=== PATIENT | female | born 1995 | race Hispanic/Latino ===

== ENCOUNTER 2016-11-26 14:13 | Emergency (ER) | payer OTHER ==
[2016-11-26 14:26] VITALS: BP 145/80
--- NOTE | 2016-11-26 14:35 | PROVIDER DOCUMENTATION ---
HPI-General Adult - General Chief Complaint: Work Related Injury Stated Complaint: WORK RELATED INJURY Time Seen by Provider: 11/26/16 14:27 Source: patient Allergies/Adverse Reactions: Patient Allergies Allergy/AdvReac Type Severity Reaction Status Date / Time No Known Allergies Allergy Verified 04/05/16 13:55 Home Medications: Home Medication List Medication Instructions Recorded Confirmed Last Taken Type No Home Medications 11/26/16 11/26/16 Unknown History - History of Present Illness -Gen Adult Nature of Presenting Problems: Pt. is 21 yof that presents with c/o left wrist pain that began after she picked up a tray at work. Pt. reports she heard a pop and now she can't move her hand. Pt. denies any other injury. Location of Pain/Injury: reports: upper extremity (Left wrist). denies: head, face, mouth, neck, chest, hand(s), abdomen, back, pelvis, genitalia, lower extremity, feet, upper body, lower body, generalized Pain Radiation: reports: no radiation Quality of Pain: reports: aching. denies: burning, cramping, dull, fullness, indigestion, pressure, sharp, stabbing, tearing, throbbing, tightness Severity: reports: moderate. denies: mild, severe Onset/Duration: reports: abrupt, just prior to arrival Timing: reports: still present. denies: improving, gone now, resolved prior to arrival, intermittent, constant, changing over time, getting worse Context/Activities at Onset: reports: light activity, recent physical stress. denies: recent emotional stress, recent trauma history, possible bad food, cold exposure, out of country travel Modifying Factors: improves with: immobilization. worse with: movement Associated Symptoms: reports: joint pain (Left wrist). denies: anxiety, arm pain, back/neck pain, chest pain, constipation, cough, diarrhea, EENT symptoms, fatigue, fever/chills, genitourinary problems, headaches, heartburn, loss of appetite, malaise, muscle aches, sinus congestion/drainage, nausea, rash, seizure, shortness of breath, sensory/motor loss, pain with inspiration, swelling/mass in abdomen, syncope, vomiting, weakness, trouble walking Similar Symptoms Previously?: No Recently seen or treated by another doctor?: No Review of Systems - Adult - REVIEW OF SYSTEMS - ADULT Constitutional: reports: see HPI. denies: chills, fever, fatique Eyes: reports: see HPI. denies: discharge, blurred vision, double vision Ears, Nose, Mouth & Throat: reports: see HPI. denies: ear pain, hearing loss, sinus problem, nose pain, loose teeth, mouth/dental pain, hoarseness, throat swelling Cardiovascular: reports: see HPI. denies: chest pain, orthopnea, palpitations, syncope Respiratory: reports: see HPI. denies: cough, dyspnea on exertion, pleurisy, shortness of breath, wheezing Gastrointestinal: reports: see HPI. denies: abdominal pain, hematemesis, diarrhea, nausea, vomiting Genitourinary: reports: see HPI. denies: dysuria, frequency, hematuria, hesitency, incontinence, urgency Musculoskeletal: reports: see HPI, joint pain (left wrist). denies: bone pain, back pain, joint swelling, neck pain Integumentary: reports: see HPI. denies: hives, hair loss, itching, rash, skin thickening Neurological: reports: see HPI. denies: ataxia, headache/migraines, numbness, seizure, tremors Psychiatric: reports: see HPI. denies: anxiety, depression, emotional problems , insomnia, panic attacks, suicidal thoughts Past History - Adult - PAST MEDICAL HISTORY-ADULT Review of Records: reports: Old Records Reviewed, Nursing Assessment Review, Medications Reviewed, Social history reviewed & non-contributory. Major Childhood Illnesses: reports: denies history Cardiovascular: reports: denies history Respiratory: reports: denies history Gastrointestinal: reports: denies history Obstetrical/Gynecological: reports: denies history Genitourinary: reports: denies history Musculoskeletal: reports: denies history Neurological: reports: denies history Endocrine/Immune: reports: denies history Other Conditions: reports: denies history - PRIOR SURGERIES/PROCEDURES Surgical/Procedure History: reports: none - IMMUNIZATION STATUS Childhood Immunizations: See Nurse Assessment Flu Vaccine: See Nurse Assessment - FAMILY HISTORY Family History: reviewed, not pertinent - SOCIAL HISTORY Smoking: non-smoker Physical Exam-General - PHYSICAL EXAM-ADULT Initial Vital Signs Reviewed: Yes - CONSTITUTIONAL General Appearance: alert, mild distress, thin. negative: obese, anxious, lethargic, slow to respond, obtunded, combative - EYES Eyes: PERRL/EOMI, pink conjunctivae. negative: conjuctival exudate, scleral icterus, subconjunctival hemorrhage - HEAD, EARS, NOSE, MOUTH & THROAT HENMT: normocephalic/atraumatic, moist mucous membranes. negative: angioedema, frontal tenderness, maxillary tenderness - NECK Neck: non-tender, full range of motion, supple, normal inspection. negative: lymphadenopathy, trachial deviation, thyromegaly - RESPIRATORY Respiratory: lungs clear, normal breath sounds. negative: crackles, rales, rhonchi, stridor, wheezing - CARDIOVASCULAR Cardiovascular: normal peripheral pulses, regular rate, rhythm, no edema, no JVD , no murmur. negative: extra beats, friction rub, irregularly irregular - CHEST (BREASTS) Chest/Breast: deferred - GASTROINTESTINAL (ABDOMEN) Abdominal Exam: normal bowel sounds, non tender, soft. negative: distended, guarding, rigid, rebound, tenderness, hernia, mass - GENITOURINARY Female Genitalia/Pelvic Exam: deferred Rectal Exam: deferred Hemoccult Exam: deferred - LYMPHATIC Lymphatic: no adenopathy. negative: axilla node tender, cervical node tenderness - MUSCULOSKELETAL Back Exam: normal inspection, no CVA tenderness, no vertebral tenderness. negative: ecchymosis, swelling, vertebral tenderness Extremity: normal gait, normal inspection, tenderness (Left wrist). negative: deformity, erythema, inflammation, swelling Peripheral Pulses: radial (R): 2+, radial (L): 2+ - SKIN Integumentary: normal color, normal turgor, warm/dry. negative: cyanosis, diaphoresis, ecchymosis, erythema, jaundice, mottled, pallor, petechiae, purpura , rash, swelling, tenderness - NEUROLOGIC Neurologic: grossly normal, no motor/sensory deficits. negative: aphasia, facial droop, focal weakness, motor weakness, sensory deficit - PSYCHIATRIC Psych/Mental Status: normal mood/affect, normal thought content, normal thought process, oriented x 3. negative: anxious, paranoid, tearful Progress - PLAN OF CARE/RESULTS Progress/Plan/Lab Results: Discussed results and plan of care with patient. Patient agrees with plan and verbalizes understanding. Vital Signs Temp Pulse Resp BP Pulse Ox 11/26/16 14:23 98 F 90 18 145/80 100 No Known Allergies Allergy (Verified 04/05/16 13:55) No Home Medications 11/26/16 Orders Category Date Time Status WRIST COMPLETE LEFT [RAD] Stat Exams 11/26/16 14:27 Taken - XRAY 1 XRAY: Left XRAY Study: Wrist XRAY Interpretation: No Fx ([place]) Departure - Departure Time of Disposition Order: 14:54 DIAGNOSIS: Wrist strain Qualifiers: Encounter type: initial encounter Laterality: left Qualified Code(s): S66.912A - Strain of unspecified muscle, fascia and tendon at wrist and hand level, left hand, initial encounter Disposition: HOME 01 Certified Medical Emergency: Emergent Condition: Stable Additional Instructions: Follow up with primary care physician Wear rossana wrap for comfort Elevate and ice when at home Take tylenol or ibuprofen as directed by packaging for pain Return to ED for any concerns or worsening of symptoms ED Follow Up Instructions: You have been treated by a care provider in the Emergency Department. These instructions are being provided to you so you can have an understanding of how to care for yourself upon discharge. Upon discharge from the Emergency Department, you are responsible for making arrangements for follow-up care by a physician of your choice. Take all prescribed medications as directed. Return to the Emergency Department immediately for any new or worsening symptoms. You may call the Physician Referral phone number at [phone] to obtain a list of Physicians who are taking new patients. Forms: Work Excuse Attestation - Physician/ JOSE J Attestation Patient care was provided by Advanced Practice Provider:: Yes Advanced Practice Provider:: eBa Adan Advanced Practice Provider documentation review:: The Mid-level provider documentation, treatment plan and medical decision making was reviewed by the physician who agrees with all treatment and medical decision making by the MLP.
[2016-11-26] MEDS ORDERED: MOTRIN PO ONE (14:54)
[2016-11-26] MEDS ORDERED: PRILOSEC PO ONE (14:54)
--- NOTE | 2016-11-26 15:16 | Diag Imaging Result Document ---
PROCEDURE NAME: WRIST COMPLETE LEFT - 11/26/2016 LEFT WRIST THREE VIEWS: FINDINGS: No fracture. No dislocation. IMPRESSION: No acute bony injury.
== END 2016-11-26 15:15 | disposition home or self-care (01) ==
LOC: P.ED 14:13
DX: S66.912A Strain of unspecified muscle, fascia and tendon at wrist and hand level, left hand, initial encounter (principal); M25.532 Pain in left wrist; X58.XXXA Exposure to other specified factors, initial encounter
CPT/HCPCS: 99283

== ENCOUNTER 2019-02-28 17:16 | Inpatient (IN) ==
[2019-02-28] MEDS ORDERED: ZOFRAN IV ONE (17:58)
[2019-02-28] MEDS ORDERED: MORPHINE IV ONE (17:58)
[2019-02-28] MEDS ORDERED: NS 1,000 ML IV ONE ×2 (17:58→18:01)
--- NOTE | 2019-02-28 18:30 | Diag Imaging Result Doc PS360 ---
EXAM: CHEST-1 VIEW - 02/28/2019 HISTORY: chills, LUQ pain TECHNIQUE: Portable chest COMPARISON: None. FINDINGS: Heart size is normal. The lungs appear clear. There is no pleural effusion or pneumothorax identified. IMPRESSION: No evidence of acute disease. Electronically signed by Jese Rivero 02/28/2019 6:28 PM
[2019-02-28 18:34] LABS: URINE SOURCE CATH
[2019-02-28 18:39] LABS: BILIRUBIN URINE NEGATIVE (NEGATIVE); BLOOD URINE NEGATIVE (NEGATIVE); COLOR YELLOW; GLUCOSE URINE NEGATIVE (NEGATIVE); KETONE URINE NEGATIVE (NEGATIVE); LEUKOCYTES URINE SMALL (NEGATIVE); NITRITE URINE NEGATIVE (NEGATIVE); PH URINE 5.5; PROTEIN URINE TRACE mg/dL (NEGATIVE); SP GRAVITY URINE 1.024; TURBIDITY URINE HAZY (CLEAR); UROBILINOGEN URINE NORMAL (NORMAL)
[2019-02-28 18:40] LABS: UR EPITHELIAL CELLS <10 /HPF (<10); URINE BACTERIA 4+ /HPF; URINE RBC <10 /HPF (<10); URINE WBC <10 /HPF (<10)
[2019-02-28 18:41] LABS: BASO# 0.02 X1000 (0.0-0.2); BASO% 0.3 % (0.0-0.8); EOS# 0.04 X1000 (0.0-0.7); EOS% 0.7 % (0.0-10.0); HEMATOCRIT 24.8 % (37.0-47.0); HEMOGLOBIN 6.8 g/dL (12.0-16.0); LYMPH# 1.49 X1000 (1.2-3.4); LYMPH% 24.3 % (20.5-51.1); MCH 19.9 PG (27-31); MCHC 27.4 g/dL (33-37); MCV 72.7 FL (81-99); MONO# 0.69 X1000 (0.11-0.59); MONO% 11.3 % (1.7-9.3); MPV 11.4 FL (7.4-10.4); NEUT# 3.89 X1000 (1.4-6.5); NEUT% 63.4 % (42.2-75.2); PLT 219 X1000 (130-400); RBC 3.41 XMIL (4.2-5.4); RDW 18.1 % (11.5-14.5); WBC 6.13 X1000 (4.8-10.8)
--- NOTE | 2019-02-28 18:43 | PROVIDER DOCUMENTATION ---
This chart was entered by Elizabeth Ta Scribe, acting as scribe for Keyur Worthington MD. HPI-Abdominal Pain/GI Problem - General Source: patient - History of Present Illness-ABD Nature of Presenting Problems: 23 y/o female presents to ED with sharp generalized abdominal pain, SOB, headache, and sternal chest pain onset 1 hour prior to arrival. Pt reports she had 1 episode of epistaxis and N/V. Pt states her symptoms began after she got off of work this evening. Pt reports LMP 2 weeks ago. Pt is alert and oriented. Abdominal Pain Onset Location: reports: generalized abdomen Pain Radiation: reports: no radiation Quality of Pain: reports: sharp Severity in ED: reports: moderate Onset/Duration: reports: 1-3 hours ago Timing: reports: still present Activities at Onset: reports: none Modifying Factors: worse with: palpation Associated Symptoms: reports: chest pain, headaches, nausea, shortness of breath , vomiting, other (epistaxis) Last BM: unsure Dark Stools Present?: reports: none noticed Rectal Bleeding: reports: none Rectal Pain: reports: none Similar Symptoms Previously?: No Recently seen or treated by another doctor?: No <Keyur Worthington - Last Filed: 02/28/19 18:43> <Radha Hutton - Last Filed: 02/28/19 21:23> - General Chief Complaint: Abdominal Pain Stated Complaint: ABD PAIN Time Seen by Provider: 02/28/19 17:45 Allergies/Adverse Reactions: Patient Allergies Allergy/AdvReac Type Severity Reaction Status Date / Time No Known Allergies Allergy Verified 04/14/18 18:13 Home Medications: Home Medication List Medication Instructions Recorded Confirmed Last Taken Type Triamcinolone [Kenalog in [employer]] 1 applicatn TOP TID 10 Days #1 tube 11/05/18 Unknown Rx Review of Systems - Adult - REVIEW OF SYSTEMS - ADULT Constitutional: denies: chills, fever Eyes: reports: no symptoms reported Ears, Nose, Mouth & Throat: reports: epistaxis. denies: ear discharge Cardiovascular: reports: chest pain. denies: palpitations Respiratory: reports: shortness of breath. denies: cough Gastrointestinal: reports: abdominal pain, nausea, vomiting. denies: diarrhea Genitourinary: reports: no symptoms reported Musculoskeletal: denies: back pain, joint pain Integumentary: reports: no symptoms reported Neurological: reports: headache/migraines. denies: dizziness/vertigo, seizure Psychiatric: reports: no symptoms reported Endocrine: reports: no symptoms reported Hematologic/Lymphatic: reports: no symptoms reported Allergic/Immunologic: reports: no symptoms reported All Other Systems: Reviewed and Negative <Keyur Worthington - Last Filed: 02/28/19 18:43> Past History - Adult - PAST MEDICAL HISTORY-ADULT Review of Records: reports: Old Records Reviewed, Nursing Assessment Review, Medications Reviewed Major Childhood Illnesses: reports: denies history Cardiovascular: reports: denies history Respiratory: reports: denies history Gastrointestinal: reports: denies history Obstetrical/Gynecological: reports: denies history Genitourinary: reports: denies history Musculoskeletal: reports: denies history Neurological: reports: denies history Endocrine/Immune: reports: hypoglycemia Other Conditions: reports: denies history - PRIOR SURGERIES/PROCEDURES Surgical/Procedure History: reports: none - IMMUNIZATION STATUS Childhood Immunizations: See Nurse Assessment Flu Vaccine: See Nurse Assessment - FAMILY HISTORY Family History: reviewed, not pertinent - SOCIAL HISTORY Smoking: non-smoker Substance Use: none/never Alcohol Use Frequency: never Living Situation: family <Keyur Worthington - Last Filed: 02/28/19 18:43> Physical Exam-General - PHYSICAL EXAM-ADULT Initial Vital Signs Reviewed: Yes - CONSTITUTIONAL General Appearance: appears well, alert, moderate distress - EYES Eyes: PERRL/EOMI, pink conjunctivae - HEAD, EARS, NOSE, MOUTH & THROAT HENMT: normocephalic/atraumatic, moist mucous membranes, normal ENT inspection - RESPIRATORY Respiratory: chest non-tender, lungs clear, normal breath sounds - CARDIOVASCULAR Cardiovascular: normal peripheral pulses, regular rate, rhythm - GASTROINTESTINAL (ABDOMEN) Abdominal Exam: normal bowel sounds, soft, tenderness (epigastric, LUQ, suprapubic) - MUSCULOSKELETAL Back Exam: normal inspection, no vertebral tenderness, CVA tenderness (R) Extremity: normal range of motion, non-tender, normal gait - SKIN Integumentary: normal color, warm/dry - NEUROLOGIC Neurologic: grossly normal - PSYCHIATRIC Psych/Mental Status: normal mood/affect, normal thought content, normal thought process, oriented x 3 <Keyur Worthington - Last Filed: 02/28/19 18:43> Progress - PLAN OF CARE/RESULTS Progress/Plan/Lab Results: Vital Signs - 8 hr 02/28/19 17:29 Temperature 98.9 F Pulse Rate 95 H Respiratory Rate 20 Blood Pressure 134/83 O2 Sat by Pulse Oximetry 100 Bedside Urine ED: Urine Bedside Start: 02/28/19 17:43 Freq: ORDERED Status: Active Protocol: Activity Type Activity Date Activity User E-Sign Co-Sign Detail Recorded Client Recorded Date Recorded By Document 02/28/19 17:46 [id number] 02/28/19 17:48 [id number] 02/28/19 17:46 Point of Care [Bedside Point of Care] -Lot # [id number] - Results Negative -Control Line Visible? Yes Orders Category Date Time Status ED: Urine Bedside ORDERED Care 02/28/19 17:43 Active Result Diagrams: 02/28/19 17:38 - XRAY 1 XRAY Study: Chest Impression: See EMR Report - CT/MRI 1 CT Study: Abdomen, Pelvis Impression: See EMR Report - CHANGE OF SHIFT REPORT (ED Provider) 1 Report Given and Care Transferred to:: Anni Time of Transfer: 19:00 <Keyur Worthington - Last Filed: 02/28/19 18:43> - PLAN OF CARE/RESULTS Progress/Plan/Lab Results: Vital Signs - 8 hr 02/28/19 17:29 02/28/19 17:31 02/28/19 17:46 Temperature 98.9 F Pulse Rate 95 H Respiratory Rate 20 Blood Pressure 134/83 O2 Sat by Pulse Oximetry 100 100 97 02/28/19 17:50 02/28/19 18:00 02/28/19 18:10 Temperature Pulse Rate Respiratory Rate Blood Pressure O2 Sat by Pulse Oximetry 99 100 98 02/28/19 18:20 02/28/19 18:30 02/28/19 18:38 Temperature Pulse Rate Respiratory Rate Blood Pressure 87/53 O2 Sat by Pulse Oximetry 98 98 100 02/28/19 18:40 02/28/19 18:50 02/28/19 19:00 Temperature Pulse Rate Respiratory Rate Blood Pressure O2 Sat by Pulse Oximetry 100 97 98 02/28/19 19:02 02/28/19 19:10 02/28/19 19:36 Temperature Pulse Rate Respiratory Rate Blood Pressure 112/57 O2 Sat by Pulse Oximetry 98 99 100 02/28/19 19:40 02/28/19 20:56 02/28/19 21:03 Temperature 98.3 F 98.3 F Pulse Rate 93 H 82 Respiratory Rate 18 18 Blood Pressure 118/71 114/57 O2 Sat by Pulse Oximetry 100 100 97 02/28/19 21:07 02/28/19 21:13 Temperature 98.4 F 97.6 F Pulse Rate 78 86 Respiratory Rate 18 18 Blood Pressure 112/59 105/60 O2 Sat by Pulse Oximetry 99 100 Bedside Urine ED: Urine Bedside Start: 02/28/19 17:43 Freq: ORDERED Status: Active Protocol: Activity Type Activity Date Activity User E-Sign Co-Sign Detail Recorded Client Recorded Date Recorded By Document 02/28/19 17:46 [id number] 02/28/19 17:48 [id number] 02/28/19 17:46 Point of Care [Bedside Point of Care] -Lot # [id number] - Results Negative -Control Line Visible? Yes Laboratory Results - last 24 hr 02/28/19 02/28/19 02/28/19 17:38 17:38 17:43 WBC 6.13 RBC 3.41 L Hgb 6.8 L Hct 24.8 L MCV 72.7 L MCH 19.9 L MCHC 27.4 L RDW Std Deviation 18.1 H Plt Count 219 MPV 11.4 H Immature Gran % (Auto) 0.0 Neut % (Auto) 63.4 Lymph % (Auto) 24.3 Titus % (Auto) 11.3 H Eos % (Auto) 0.7 Baso % (Auto) 0.3 Immature Gran # (Auto) 0.00 Neut # (Auto) 3.89 Lymph # (Auto) 1.49 Titus # (Auto) 0.69 H Eos # (Auto) 0.04 Baso # (Auto) 0.02 Sodium 139 Potassium 3.4 L Chloride 104 Carbon Dioxide 21 L Anion Gap 14 BUN 14 Creatinine 0.7 Estimated GFR/1.73 m2 > 60 BUN/Creatinine Ratio 20 Glucose 120 H Calculated Osmolality 279 Calcium 8.8 Iron TIBC % Saturation Unsat Iron Binding Ferritin Total Bilirubin 0.69 AST 17 ALT 10 Alkaline Phosphatase 73 Total Protein 7.6 Albumin 4.2 Globulin 3.4 Albumin/Globulin Ratio 1.2 Amylase 23 Lipase 17 Vitamin B12 Folate Urine Source CATH Urine Color YELLOW Urine Turbidity HAZY Urine pH 5.5 Ur Specific [place] 1.024 Urine Protein TRACE A Ur Glucose (Stick) NEGATIVE Ur Ketones (Stick) NEGATIVE Urine Blood NEGATIVE Urine Nitrite NEGATIVE Urine Bilirubin NEGATIVE Urobilinogen Dipstick NORMAL Urine Leukocytes SMALL A Urine WBC (Auto) <10 Urine RBC (Auto) <10 U Epithel Cells (Auto) <10 Urine Bacteria (Auto) 4+ Blood Type Weak D (Du) Antibody Screen Crossmatch 02/28/19 02/28/19 02/28/19 19:48 19:48 19:48 WBC RBC Hgb Hct MCV MCH MCHC RDW Std Deviation Plt Count MPV Immature Gran % (Auto) Neut % (Auto) Lymph % (Auto) Titus % (Auto) Eos % (Auto) Baso % (Auto) Immature Gran # (Auto) Neut # (Auto) Lymph # (Auto) Titus # (Auto) Eos # (Auto) Baso # (Auto) Sodium Potassium Chloride Carbon Dioxide Anion Gap BUN Creatinine Estimated GFR/1.73 m2 BUN/Creatinine Ratio Glucose Calculated Osmolality Calcium Iron TIBC % Saturation Unsat Iron Binding Ferritin 5 L Total Bilirubin AST ALT Alkaline Phosphatase Total Protein Albumin Globulin Albumin/Globulin Ratio Amylase Lipase Vitamin B12 Folate 15.4 Urine Source Urine Color Urine Turbidity Urine pH Ur Specific [place] Urine Protein Ur Glucose (Stick) Ur Ketones (Stick) Urine Blood Urine Nitrite Urine Bilirubin Urobilinogen Dipstick Urine Leukocytes Urine WBC (Auto) Urine RBC (Auto) U Epithel Cells (Auto) Urine Bacteria (Auto) Blood Type O NEGATIVE Weak D (Du) WEAK D NEGATIVE Antibody Screen NEGATIVE Crossmatch See Detail 02/28/19 02/28/19 19:48 19:48 WBC RBC Hgb Hct MCV MCH MCHC RDW Std Deviation Plt Count MPV Immature Gran % (Auto) Neut % (Auto) Lymph % (Auto) Titus % (Auto) Eos % (Auto) Baso % (Auto) Immature Gran # (Auto) Neut # (Auto) Lymph # (Auto) Titus # (Auto) Eos # (Auto) Baso # (Auto) Sodium Potassium Chloride Carbon Dioxide Anion Gap BUN Creatinine Estimated GFR/1.73 m2 BUN/Creatinine Ratio Glucose Calculated Osmolality Calcium Iron 15 L TIBC 395 % Saturation 4 Unsat Iron Binding 380 H Ferritin Total Bilirubin AST ALT Alkaline Phosphatase Total Protein Albumin Globulin Albumin/Globulin Ratio Amylase Lipase Vitamin B12 367 Folate Urine Source Urine Color Urine Turbidity Urine pH Ur Specific [place] Urine Protein Ur Glucose (Stick) Ur Ketones (Stick) Urine Blood Urine Nitrite Urine Bilirubin Urobilinogen Dipstick Urine Leukocytes Urine WBC (Auto) Urine RBC (Auto) U Epithel Cells (Auto) Urine Bacteria (Auto) Blood Type Weak D (Du) Antibody Screen Crossmatch Orders Category Date Time Status ED: Urine Bedside ORDERED Care 02/28/19 17:43 Active Transfuse .Give-Transfuse Care 02/28/19 19:19 Active CHEST-1 VIEW [RAD] Stat Exams 02/28/19 17:[address] ABD/PELVIS W/IV CONT ONLY [CT] Stat Exams 02/28/19 17:59 Completed AMYLASE [CHEM] Stat Lab 02/28/19 17:38 Completed CBC WITH DIFF [HEME] Stat Lab 02/28/19 17:38 Completed COMPREHENSIVE METABOLIC PANEL [CHEM] Stat Lab 02/28/19 17:38 Completed FERRITIN Stat Lab 02/28/19 19:48 Completed FOLATE Stat Lab 02/28/19 19:48 Completed LIPASE [CHEM] Stat Lab 02/28/19 17:38 Completed PRBC [LRPC (RED CELLS)] [BBK] Stat Lab 02/28/19 19:48 Results TRANSFERRIN [HH] Stat Lab 02/28/19 19:48 Received TYPE & SCREEN [BBK] Stat Lab 02/28/19 19:48 Results UIBC W TOTAL IRON [CHEM] Stat Lab 02/28/19 19:48 Completed URINALYSIS [URINALYSIS] Stat Lab 02/28/19 17:43 Completed VITAMIN B12 Stat Lab 02/28/19 19:48 Completed WEAK D (MANUAL) [BBK] Stat Lab 02/28/19 19:48 Results 0.9% Sodium Chloride Inj [Ns] 1,000 ml Med 02/28/19 18:01 Active IV 200 mls/hr 0.9% Sodium Chloride Inj [Ns] 1,000 ml Med 02/28/19 17:58 Discontinued IV 999 mls/hr Morphine Med 02/28/19 17:58 Discontinued 4 mg IV NOW ONE Ondansetron [Zofran] Med 02/28/19 17:58 Discontinued 8 mg IV NOW ONE Patient signed out to me pending CT Abd/pelvis. Hgb low to 6.[address] showing complex ovarian cyst which is likely the cause of her pain. SPoke to patient regarding findings and spoke to hospitalist regarding admission. Hospitalist accepted patient. Further orders to be placed by hospitalist teams. Result Diagrams: 02/28/19 17:38 02/28/19 17:38 - CONSULTS/PCP/HOSPITALIST Notification Time Discussed: 21:13 Reason/Comments: Hospitalist Consult Disposition: Admit <Radha Hutton - Last Filed: 02/28/19 21:23> Departure <Keyur Worthington - Last Filed: 02/28/19 18:43> - Departure Date of Disposition Decision: 02/28/19 Time of Disposition Decision: 21:20 Certified Medical Emergency: Emergent - Critical Care Note This patient required my direct & personal management of CC.: Yes Total Time (mins): 35 Critical Care Statement: This patient required my direct personal management to treat or rule out processes, the absence of which, could potentiallly result in sudden, clinically significant life or limb threatening deterioration. <Radha Hutton - Last Filed: 02/28/19 21:23> - Departure DIAGNOSIS: Acute on chronic anemia, Iron deficiency anemia Disposition: ADMITTED INPATIENT 09 Condition: Stable Referrals and Follow-Ups: None,PCP [Primary Care Provider] - Attestation - Physician/ JOSE J Attestation Patient care was provided by Advanced Practice Provider:: No The physician spent face to face time with patient:: Yes Advanced Practice Provider documentation review:: Supervising physician onsite and consulted in the evaluation and care of this patient. The physician did have a face to face encounter with the patient. <Keyur Worthington - Last Filed: 02/28/19 18:43> This chart was documented by the indicated scribe, (Elizabeth Ta Scribe) and accurately reflects the services I performed and decisions made by me, Keyur Worthington MD, as attested by the provider's signature.
[2019-02-28 18:56] LABS: AGAP 14; ALB/GLOB RATIO 1.2; ALBUMIN 4.2 g/dL (3.5-5.0); ALKALINE PHOSPHATASE 73 U/L (32-104); AMYLASE 23 U/L (20-200); BUN 14 mg/dL (8-22); CALCIUM 8.8 mg/dL (8.8-10.2); CHLORIDE 104 mmol/L (98-107); COSMO 279; CREATININE 0.7 mg/dL (0.5-0.9); ESTIMATED GFR > 60; GLUCOSE 120 mg/dL (70-104); GOT 17 U/L (10-30); GPT 10 U/L (10-36); LIPASE 17 U/L (13-60); POTASSIUM 3.4 mmol/L (3.5-5.1); SODIUM 139 mmol/L (136-145); TCO2 21 mmol/L (25-35); TOTAL BILIRUBIN 0.69 mg/dL (0.20-1.00); TOTAL PROTEIN 7.6 g/dL (6.3-8.3)
--- NOTE | 2019-02-28 19:42 | Diag Imaging Result Doc PS360 ---
EXAM: CT ABD/PELVIS W/IV CONT ONLY - 02/28/2019 HISTORY: abd pain TECHNIQUE: CT abdomen/pelvis with intravenous contrast. No oral contrast administered per request of the referring provider. COMPARISON: None. FINDINGS: The visualized lung bases appear clear. The liver and spleen are borderline prominent in size. There is no focal hepatic or splenic lesion identified. The adrenal glands and pancreas are unremarkable. There are no calcified gallstones or pericholecystic inflammation identified. The bilateral kidneys enhance homogeneously. There is no hydronephrosis. 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 There are no substantial enlarged lymph nodes identified. There is no evidence of bowel obstruction. The appendix is retrocecal in location and is unremarkable. There is a moderate amount retained fecal debris in the colon. There is no substantial bowel wall thickening identified. There is no free air or abscess identified. Images of pelvis show a 5.4 x 5 cm cystic lesion with internal septation or daughter cyst at the left posterior pelvis, which appears to arise from the left adnexa. There is a small amount of free fluid in the posterior pelvis. IMPRESSION: Borderline hepatosplenomegaly. No evidence of focal hepatic or splenic lesion. No bowel obstruction. Unremarkable appendix. Apparent constipation. 5.4 x 5 cm mildly complex cystic lesion arising at left adnexa. Small amount of free fluid in pelvis. This exam was performed using automated exposure control, adjustment of mA or kV according to patient size, and/or use of iterative reconstruction technique. Electronically signed by Jese Rivero 02/28/2019 7:40 PM
[2019-02-28 20:33] LABS: IRON SATURATION 4 %; TIBC 395 ug/dL; TOTAL IRON 15 ug/dL (49-151); UNBOUND IRON 380 ug/dL (112-346)
[2019-02-28] MEDS ORDERED: PHENERGAN IV PRN (22:40)
[2019-02-28] MEDS ORDERED: TYLENOL PO PRN (22:40)
[2019-02-28] MEDS ORDERED: MORPHINE IV PRN (22:40)
[2019-02-28] MEDS ORDERED: POTASSIUM CHLORIDE 20 MEQ/SWI 20 MEQ/100 ML IVPB IV ONE (22:43)
[2019-02-28] MEDS ORDERED: SODIUM CHLORIDE 0.9% INJ PRN (22:43)
[2019-02-28] MEDS: NS 1,000 ML IV SCH (23:21)
[2019-03-01] MEDS ORDERED: ZOFRAN IV PRN (00:30)
[2019-03-01] MEDS: NS 1,000 ML IV SCH (03:49)
[2019-03-01] MEDS: PRILOSEC PO SCH (06:23)
--- NOTE | 2019-03-01 07:10 | EKG Report ---
Test Performed on : 03/01/2019 06:48:38 AM Test Reason : Fatigue,Abd. Pain, SOB Blood Pressure : / mmHG Vent. Rate : 084 BPM Atrial Rate : 084 BPM P-R Int : 152 ms QRS Dur : 086 ms QT Int : 376 ms P-R-T Axes : 042 073 043 degrees QTc Int : 444 ms Normal sinus rhythm. Normal ECG No previous ECGs available Confirmed by Chino MANSFIELD, Loco Riley ([id number]) on 03/02/2019 7:28:20 PM
--- NOTE | 2019-03-01 07:23 | HISTORY AND PHYSICAL ---
CHIEF COMPLAINT: Abdominal pain. DATE AND TIME: 02/28/2019 at 2230. HISTORY OF PRESENT ILLNESS: Ms. Myke Patel is a 23-year-old female who has a past medical history most notable for iron-deficiency anemia and hypoglycemia. The patient states that for the past few weeks, she has been feeling very tired and fatigued. She even noted that she used to work two jobs, but had to let one of her jobs go because she was too tired to do both. She states that she does have a history of iron-deficiency anemia, and is supposed to be taking iron supplement, though has not been taking this recently. She reports that on February 28, approximately 1 hour prior to arrival to the ER, that she began having left upper quadrant abdominal pain, which she described as sharp in nature, feeling like somebody was stabbing her. She also reported symptoms of shortness of breath, chest pain, nausea, and vomiting. She also reported a headache as well. The patient states that right after these symptoms started, she did have an episode of epistaxis. Though upon further questioning, the patient states she has a history of having frequent nosebleeds, and this has been ongoing since she was a child, though she did deny any recent sinus problems. The patient denies any dizziness. She denied any cough, fever, body aches, or chills. She denies any hematochezia or melena. She denies any dysuria or urinary frequency. She states that her last menstrual period was 2 weeks ago. She did not report any heavy menstrual bleeding, though did state that she had been having lots of fatigue associated with her periods recently, so bad that she would just have to lay in bed. She denies any vaginal bleeding at this time as well. She reports that she has been taking some [id number] pain medication of ibuprofen, approximately 200 mg 2 times a day. Upon evaluation in the ER, the patient was noted to be anemic with a hemoglobin of 6.8 and hematocrit of 24.8. Platelet count was 219,000. For further evaluation of her shortness of breath, I did perform a chest x-ray, which showed noted evidence of acute disease. For the evaluation of her abdominal pain, I did perform a CT abdomen and pelvis with IV contrast only, which showed that the patient had borderline hepatosplenomegaly, though there was no evidence of a focal hepatic or splenic lesion. There was apparent constipation. There was also a 5.4 x 5 cm mildly complex cystic lesion arising from the left adnexa, with a small amount of free fluid in the pelvis. Given these symptoms as well as the patient's radiology findings, she will be admitted for further treatment and evaluation. REVIEW OF SYSTEMS: A 14-point review of systems was conducted with the patient, and all were negative, except the pertinent positives mentioned above in HPI. PAST MEDICAL HISTORY: 1. Iron-deficiency anemia. 2. Hypoglycemia. PAST SURGICAL HISTORY: The patient denies any previous surgeries. SOCIAL HISTORY: The patient denies any alcohol, tobacco, or illicit drug use. FAMILY HISTORY: Positive for her mother having a history of anemia as well. There were no other reported family medical problems in her father or siblings. ALLERGIES: The patient reports no known allergies. MEDICATIONS: The patient denies any prescription medication use. DIAGNOSTIC DATA: White blood cell count is 6130, hemoglobin 6.8, hematocrit 24.8, platelet count is 219,000. Sodium 139, potassium 3.4, chloride 104, serum bicarb is 21, BUN 14, creatinine 0.7. GFR is greater than 60. Glucose 120. Calcium 8.8. Liver function tests within normal limits. Amylase 23, lipase 17. Urinalysis was obtained via catheter, and was positive for trace protein, small leukocytes, and 4+ bacteria, though it was otherwise negative for glucose, ketones, blood, or nitrites. Bedside urine performed in the ER was negative. Chest x-ray showed no acute disease. This is per Radiology. CT abdomen and pelvis with IV contrast only did show borderline hepatosplenomegaly. There was no evidence of focal hepatic or splenic lesions. No bowel obstruction. There was apparent constipation. There was also a 5.4 x 5 cm mildly complex cystic lesion arising from the left adnexa, with a small amount of free fluid in the pelvis. Pending diagnostic study at this time is EKG. PHYSICAL EXAMINATION: VITAL SIGNS: Temperature 97.5 degrees, heart rate 80, respirations 16, blood pressure is 109/63, oxygen saturation is 100% on room air. GENERAL: Ms. Myke Patel is a pleasant, 23-year-old, female. She was resting in the inpatient bed. She was in no acute distress. She was awake, alert, and able to answer questions appropriately. HEENT: Head is atraumatic, normocephalic. Pupils are equal, round, reactive to light, and were 3 mm bilaterally and brisk. Sub-conjunctivae were slightly pale. Oral mucosa is moist. Oropharynx was clear. NECK: Supple. Trachea midline. CARDIOVASCULAR: The patient has S1, S2 present. No murmurs, gallops, rubs appreciated, with a regular rate and rhythm. PULMONARY: The patient has symmetrical chest expansion bilaterally. Lung sounds are clear to auscultation in bilateral full pope. ABDOMEN: Soft, nondistended. The patient reports some tenderness in her left upper quadrant area. Bowel sounds are present in all 4 quadrants and were normoactive. EXTREMITIES: No cyanosis, clubbing, or edema noted. Pulse, motor, and sensory is intact in all extremities. Radial pulses and pedal pulses were 3+ bilaterally. INTEGUMENTARY: The patient's skin is pink, warm, and dry. NEUROLOGICAL: The patient is alert and oriented to person, place, time, and situation. She is able to move all extremities. There do not appear to be any focal neurological deficits noted. ASSESSMENT AND PLAN: 1. Symptomatic anemia. For this, we have ordered an anemia profile. The patient will be transfused with 2 units of packed red blood cells. Will repeat a CBC in the morning. For further evaluation given the findings of the cystic lesion arising from her left adnexa, and that she has symptomatic anemia, we will go ahead and perform a pelvic ultrasound in the morning for further evaluation. Will continue to follow. 2. Abdominal pain. The patient is reporting left upper quadrant abdominal pain. CT results did note some borderline hepatosplenomegaly, as well as a mildly complex cystic lesion arising from the left adnexa. Her abdominal pain could be related to this. There was some constipation noted as well. We will place her on a bowel regimen, especially given that she is requiring some pain medicine at this time. We have ordered ultrasound as mentioned above for further evaluation of her cystic lesion of the left adnexa. Will await these results and continue to follow. 3. Mild hypokalemia. We have ordered for potassium chloride 20 mEq intravenously. We will recheck a BMP in the morning. 4. Deep venous thrombosis prophylaxis provided with sequential compression devices. She will be placed on the medical floor with telemetry. She will have vital signs every 4 hours, with strict intake and output. She will be on a clear liquid diet, to advance as tolerated. We will provide some gentle intravenous fluid hydration with normal saline at 100 mL per hour. Further orders and recommendations pending hospital course, diagnostic studies, and physician evaluation. Dictated by MACO Sifuentes for Arjun Olguin MD cc: Arjun Olguin MD [facility]
[2019-03-01 08:04] LABS: INR 1.06; PROTIME 14.6 Seconds (11.0-16.0)
[2019-03-01 08:05] LABS: PTT 35.3 Seconds (22.3-41.8)
[2019-03-01 08:08] LABS: BASO# 0.01 X1000 (0.0-0.2); BASO% 0.2 % (0.0-0.8); EOS# 0.05 X1000 (0.0-0.7); HEMOGLOBIN 8.5 g/dL (12.0-16.0); LYMPH# 1.25 X1000 (1.2-3.4); MCH 21.9 PG (27-31); MCHC 28.3 g/dL (33-37); MCV 77.3 FL (81-99); MONO# 0.67 X1000 (0.11-0.59); MONO% 13.9 % (1.7-9.3); MPV 10.6 FL (7.4-10.4); NEUT# 2.83 X1000 (1.4-6.5); NEUT% 58.9 % (42.2-75.2); PLT 175 X1000 (130-400); RBC 3.88 XMIL (4.2-5.4); RDW 18.7 % (11.5-14.5); WBC 4.81 X1000 (4.8-10.8)
[2019-03-01 08:17] LABS: AGAP 9; BUN 11 mg/dL (8-22); CALCIUM 8.1 mg/dL (8.8-10.2); CHLORIDE 110 mmol/L (98-107); COSMO 279; CREATININE 0.7 mg/dL (0.5-0.9); ESTIMATED GFR > 60; GLUCOSE 101 mg/dL (70-104); POTASSIUM 4.4 mmol/L (3.5-5.1); SODIUM 140 mmol/L (136-145); TCO2 21 mmol/L (25-35)
[2019-03-01 08:58] LABS: EOS 2 % (1-10); LYMPHS 20 % (21-51); MONO 10 % (1-9); SEGS 68 % (42-75)
[2019-03-01 08:59] LABS: ANISOCYTOSIS 1+; HYPOCHROM 1+
--- NOTE | 2019-03-01 10:26 | Diag Imaging Result Doc PS360 ---
US PELVIC NON-OB COMPLETE - 03/01/2019 INDICATION: iron deficiency anemia TECHNIQUE: Endovaginal COMPARISON: CT from 02/28/2019 FINDINGS: There is a complex, multiseptated cystic mass of the left adnexa. This measures 4.7 x 3.8 x 2.5 cm. There is a hypoechoic solid-appearing area centrally. This is indeterminate, possibly the ovary itself. The right ovary measures 2.7 x 1.9 x 3.4 cm. The uterus appears normal. The uterus measures 5.8 x 4.4 x 4.5 cm. Endometrial stripe thickness is 4 mm. IMPRESSION: Indeterminate complex cystic and solid appearing mass involving the left ovary. This may represent large functional cyst, endometriosis, or neoplasm. Less likely to represent a dermoid. Electronically signed by Ervin Meier 03/01/2019 10:23 AM
[2019-03-01] MEDS: ROCEPHIN 1 GM in NS 50 ML IV SCH (12:14)
[2019-03-01] MEDS: VENOFER 200 MG in NS 150 ML IV SCH (13:08)
[2019-03-01] MEDS ORDERED: NS 1,000 ML ONE (23:41)
[2019-03-02] MEDS: NS 1,000 ML IV SCH ×2 (02:12→02:13)
[2019-03-02] MEDS: PRILOSEC PO SCH (06:12)
[2019-03-02 07:34] LABS: HEMATOCRIT 29.1 % (37.0-47.0); HEMOGLOBIN 8.2 g/dL (12.0-16.0); MCH 22.2 PG (27-31); MCHC 28.2 g/dL (33-37); MCV 78.9 FL (81-99); MPV 9.7 FL (7.4-10.4); RBC 3.69 XMIL (4.2-5.4); RDW 18.7 % (11.5-14.5); WBC 5.67 X1000 (4.8-10.8)
[2019-03-02 07:46] LABS: AGAP 10; BUN 9 mg/dL (8-22); CALCIUM 8.2 mg/dL (8.8-10.2); CHLORIDE 107 mmol/L (98-107); COSMO 278; CREATININE 0.6 mg/dL (0.5-0.9); ESTIMATED GFR > 60; GLUCOSE 90 mg/dL (70-104); POTASSIUM 3.9 mmol/L (3.5-5.1); SODIUM 140 mmol/L (136-145); TCO2 23 mmol/L (25-35)
[2019-03-02] MEDS: VENOFER 200 MG in NS 150 ML IV SCH (09:31)
[2019-03-02] MEDS: ROCEPHIN 1 GM in NS 50 ML IV SCH (10:53)
[2019-03-02 11:43] VITALS: BP 125/72
--- NOTE | 2019-03-02 13:00 | PROGRESS NOTE ---
DATE: 03/01/2019 SUBJECTIVE: The patient is sitting up in bed. She states that her abdominal pain has improved since admission. She denies having any nausea, vomiting or diarrhea. OBJECTIVE: Vital signs: Temperature is 98.1, blood pressure 108/70, heart rate 74, respirations 16, O2 saturation is 100% on room air. General: This is a young female sitting up in bed, in no acute distress. Heart: S1 and S2 normal. Regular rate and rhythm. Lungs: Clear to auscultation bilaterally. No wheezing, no rales, no rhonchi. Abdomen: Positive bowel sounds. Soft, nontender and nondistended. Extremities: No edema, no cyanosis. Neurologic: The patient is alert and oriented x4. DIAGNOSTIC DATA: Hemoglobin is 8.5, hematocrit 30, platelets 175. Sodium 140, potassium 4.4, chloride 110, CO2 is 21, BUN is 11, creatinine 0.7, glucose 101. Pelvic ultrasound reveals an indeterminate complex cystic and solid appearing mass in the left ovary. ASSESSMENT AND PLAN: 1. Complex cystic and solid appearing mass involving the left ovary. We will consult with DIRECTOR OF RESERVATIONS for further recommendations. 2. Severe iron deficiency anemia. We will start the patient on IV iron infusions. 3. Urinary tract infection. We will order a urine culture and start the patient on antibiotic therapy. cc: Emma Woodruff MD
--- NOTE | 2019-03-03 18:29 | CONSULTATION ---
DATE OF CONSULTATION: 02/28/2019 CHIEF COMPLAINT: Abdominal pain. HISTORY OF PRESENT ILLNESS: Ms. Stringer is a 23-year-old G0 who presented to the emergency room with complaints of left upper quadrant pain. The patient was admitted for iron deficiency anemia and started on 2 units of blood transfusion. COLLAR SEPARATOR was consulted for left adnexal mass noted on imaging. The patient describes one day of generalized abdominal pain that localized to the left upper quadrant area. She admits to associated symptoms including shortness of breath, chest pain, nosebleeds, nausea and vomiting. However, patient does report a history of nosebleeds in the past. The patient denies a history of heavy menstrual periods. Last menstrual period was approximately 2 weeks ago, but the patient denies a history of heavy menstrual bleeding. Last menstrual period was noted 2 weeks ago. The patient also admits to a history of chronic anemia. CURRENT MEDICATIONS: None. PAST MEDICAL HISTORY: Iron deficiency anemia, hypoglycemia. PAST SURGICAL HISTORY: Denies any previous surgeries. COLLAR SEPARATOR HISTORY: Denies STD exposure. Menarche at age 11. OB HISTORY: G0. SOCIAL HISTORY: Denies alcohol, tobacco or drug use. FAMILY HISTORY: Mother with a history of chronic anemia. ALLERGIES: No known drug allergies. PHYSICAL EXAMINATION: Vital Signs: Temperature 98.4, pulse rate 101, respiratory rate 16, blood pressure 115/76. O2 sats 100% on room air. General: No acute distress. Cardiovascular: Regular rate and rhythm. Positive S1, S2. Respiratory: Clear to auscultation bilaterally. Abdomen: Soft, nontender to palpation in all 4 quadrants. Positive bowel sounds in all 4 quadrants. Extremities: No calf tenderness or edema. LABS: Hemoglobin 8.5, hematocrit 30, platelet 175,000, creatinine 0.7. IMAGING: Pelvic ultrasound showed a complex multiseptated cystic mass in the left adnexa measuring 4.7 x 3.8 x 2.5 cm with [*]appearing sutures. Mass may represent a large functional cyst, endometrioma or a neoplasm. ASSESSMENT: Ms. Stringer is a 23-year-old, G0, admitted for symptomatic anemia with subsequent left adnexal mass noted. PLAN: 1. Continue management plan per primary team with appropriate blood transfusions for symptomatic anemia. 2. Counseled patient on differential diagnosis for adnexal mass, including benign ovarian mass versus malignant ovarian mass. 3. Tumor markers obtained. Discuss management options, including expectant management with repeat ultrasound in 4 to 6 months versus surgical option including removal of left ovary. 4. Recommend outpatient follow-up to reassess and rediscuss management options.
== END 2019-03-02 16:46 | disposition home or self-care (01) | DRG 812 ==
LOC: SUPCPDRO → ED 17:16 → 3N 21:41 → SUATTDRO 21:41
PROVIDERS: ATTEND Emergency Medicine
CPT/HCPCS: 36430; 71010; 71045; 74177; 76856; 80048; 80053; 81001; 82105; 82150; 82378; 82607; 82728; 82746; 83540; 83550; 83615; 83625; 83690; 84466; 84702; 84704; 85025; 85027; 85610; 85730; 86304; 86850; 86900; 86901; 86920; 87088; 93005; 93010; 94761; A9270; J0696; J1756; J2270; J2405; J3480; J7030; P9016; Q9967